=== PATIENT | female | born 1950 | race Caucasian/White ===

== ENCOUNTER → 2017-02-02 | Outpatient (CLI) | payer MEDICARE ==
--- NOTE | 2017-02-02 15:16 | XR ---
EXAMINATION TYPE: XR tibia fibula LT DATE OF EXAM: 02/02/2017 COMPARISON: NONE HISTORY: Lower leg injury TECHNIQUE: 2 view tibia and fibula FINDINGS: No acute or subacute fractures are evident. Soft tissues appear normal. IMPRESSION: 1. Normal left tibia and fibula
== END ==
LOC: RADXRMAIN 14:20
PROVIDERS: ATTEND Family Medicine
DX: S89.92XA Unspecified injury of left lower leg, initial encounter (principal)

== ENCOUNTER 2017-10-08 12:45 | Emergency (ER) | payer MEDICARE ==
[2017-10-08] MEDS ORDERED: SODIUM CHLORIDE 0.9% 500 ML IV STA (14:09)
--- NOTE | 2017-10-08 14:12 | ED ---
General Adult HPI - General Chief complaint: Abdominal Pain Stated complaint: Abd pain Time Seen by Provider: 10/08/17 13:00 Source: patient, RN notes reviewed Mode of arrival: ambulatory Limitations: no limitations - History of Present Illness Initial comments: This is a [age] female presents emergency Department complaining of lower abdominal pain that radiates to her back. Patient states this began on Thursday night. Patient states she does have a history of diverticulosis but never had any diverticulitis. Patient thought it was probably a urinary tract infection because she thought she was having increased urination but no dysuria. Patient went to an urgent care facility with a did a urine and told her urine was fine. They sent her in to be evaluated for diverticulitis. Patient states she has been a little nauseated but no vomiting. Patient denies any diarrhea. Patient denies any recent fever or chills. Patient denies any difficulty breathing or chest pain. Patient denies any palpation. Patient denies any lightheadedness or dizziness. Patient denies any recent injury or trauma. - Related Data Home Medications Medication Instructions Recorded Confirmed Atenolol 25 mg PO BID 10/08/17 10/08/17 Brinzolamide [Azopt 1% Ophth Susp] 1 drop LEFT EYE BID 10/08/17 10/08/17 Esomeprazole Magnesium [NexIUM] 20 mg PO HS 10/08/17 10/08/17 Flecainide Acetate [Tambocor] 100 mg PO Q12HR 10/08/17 10/08/17 Levothyroxine Sodium [Synthroid] 88 mcg PO DAILY 10/08/17 10/08/17 Pravastatin Sodium [Pravachol] 40 mg PO DAILY 10/08/17 10/08/17 Warfarin Sodium [Coumadin] 2.5 mg PO SUTUTH 10/08/17 10/08/17 Warfarin Sodium [Coumadin] 3.75 mg PO MOWEFRSA 10/08/17 10/08/17 Previous Rx's Medication Instructions Recorded Hydrocodone/Acetaminophen [[place] 1 each PO Q4HR PRN #14 tab 10/08/17 5-325] Levofloxacin [Levaquin] 750 mg PO DAILY #10 tab 10/08/17 metroNIDAZOLE [Flagyl] 500 mg PO TID 10 Days tab 10/08/17 Allergies Allergy/AdvReac Type Severity Reaction Status Date / Time Penicillins AdvReac Abdominal Verified 10/08/17 13:27 Pain Review of Systems ROS Statement: Those systems with pertinent positive or pertinent negative responses have been documented in the HPI. ROS Other: All systems not noted in ROS Statement are negative. Past Medical History Past Medical History: Atrial Fibrillation, GERD/Reflux, Hyperlipidemia, Hypertension, Thyroid Disorder History of Any Multi-Drug Resistant Organisms: None Reported Past Surgical History: Cholecystectomy, Hysterectomy Additional Past Surgical History / Comment(s): pace maker, cataract removal Past Psychological History: No Psychological Hx Reported Smoking Status: Never smoker Past Alcohol Use History: None Reported Past Drug Use History: None Reported General Exam - General Exam Comments Initial Comments: GENERAL: Patient is well-developed and well-nourished. Patient is nontoxic and well- hydrated and is in mild distress. ENT: Neck is soft and supple. No significant lymphadenopathy is noted. Oropharynx is clear. Moist mucous membranes. Neck has full range of motion without eliciting any pain. EYES: The sclera were anicteric and conjunctiva were pink and moist. Extraocular movements were intact and pupils were equal round and reactive to light. Eyelids were unremarkable. PULMONARY: Unlabored respirations. Good breath sounds bilaterally. No audible rales rhonchi or wheezing was noted. CARDIOVASCULAR: There is a regular rate and rhythm without any murmurs gallops or rubs. ABDOMEN: Patient has some left lower quadrant point tenderness no rebound. No palpable organomegaly was noted. There is no palpable pulsatile mass. SKIN: Skin is clear with no lesions or rashes and otherwise unremarkable. NEUROLOGIC: Patient is alert and oriented x3. Cranial nerves II through XII are grossly intact. Motor and sensory are also intact. Normal speech, volume and content. Symmetrical smile. MUSCULOSKELETAL: Normal extremities with adequate strength and full range of motion. LYMPHATICS: No significant lymphadenopathy is noted PSYCHIATRIC: Normal psychiatric evaluation. Normal interpersonal interactions appears functionally intact in deals appropriately with others. No signs of depression. No signs of anxiety. Limitations: no limitations Course Vital Signs 10/08/17 13:03 Temperature 98.5 F Pulse Rate 52 L Respiratory 18 Rate Blood Pressure 106/55 O2 Sat by Pulse 99 Oximetry Medical Decision Making - Medical Decision Making Computed tomography scan shows diverticulitis. I started the patient on Levaquin and Flagyl. I discussed keeping the patient overnight patient did not want to stay she wanted to try oral antibiotics at home. - Lab Data Result diagrams: 10/08/17 13:56 10/08/17 13:56 Lab Results 10/08/17 10/08/17 10/08/17 Range/Units 13:56 13:56 13:56 WBC 9.7 (3.8-10.6) k/uL RBC 3.57 L (3.80-5.40) m/uL Hgb 11.0 L (11.4-16.0) gm/dL Hct 34.2 (34.0-46.0) % MCV 95.9 (80.0-100.0) fL MCH 30.9 (25.0-35.0) pg MCHC 32.3 (31.0-37.0) g/dL RDW 13.1 (11.5-15.5) % Plt Count 191 (150-450) k/uL Neutrophils % 86 % Lymphocytes % 8 % Monocytes % 5 % Eosinophils % 1 % Basophils % 0 % Neutrophils # 8.3 H (1.3-7.7) k/uL Lymphocytes # 0.8 L (1.0-4.8) k/uL Monocytes # 0.5 (0-1.0) k/uL Eosinophils # 0.1 (0-0.7) k/uL Basophils # 0.0 (0-0.2) k/uL Sodium 142 (137-145) mmol/L Potassium 4.2 (3.5-5.1) mmol/L Chloride 109 H (98-107) mmol/L Carbon Dioxide 24 (22-30) mmol/L Anion Gap 9 mmol/L BUN 27 H (7-17) mg/dL Creatinine 1.10 H (0.52-1.04) mg/dL Est GFR (CKD-EPI)AfAm 61 (>60 ml/min/1.73 sqM) Est GFR (CKD-EPI)NonAf 53 (>60 ml/min/1.73 sqM) Glucose 105 H (74-99) mg/dL Calcium 9.6 (8.4-10.2) mg/dL Total Bilirubin 0.5 (0.2-1.3) mg/dL AST 26 (14-36) U/L ALT 32 (9-52) U/L Alkaline Phosphatase 85 (38-126) U/L Total Protein 6.8 (6.3-8.2) g/dL Albumin 4.2 (3.5-5.0) g/dL Amylase 66 (30-110) U/L Lipase 68 (23-300) U/L Urine Color Yellow Urine Appearance Clear (Clear) Urine pH 5.0 (5.0-8.0) Ur Specific [place] 1.023 (1.001-1.035) Urine Protein Trace H (Negative) Urine Glucose (UA) Negative (Negative) Urine Ketones 1+ H (Negative) Urine Blood Negative (Negative) Urine Nitrite Negative (Negative) Urine Bilirubin Negative (Negative) Urine Urobilinogen <2.0 (<2.0) mg/dL Ur Leukocyte Esterase Negative (Negative) Disposition Clinical Impression: Diverticulitis Disposition: HOME SELF-CARE Condition: Good Instructions: Diverticulitis (ED) Prescriptions: Hydrocodone/Acetaminophen [[place] 5-325] 1 each PO Q4HR PRN #14 tab PRN Reason: Pain Levofloxacin [Levaquin] 750 mg PO DAILY #10 tab metroNIDAZOLE [Flagyl] 500 mg PO TID 10 Days tab Is patient prescribed a controlled substance at d/c from ED?: Yes When asked, does pt state using other controlled substances?: No If prescribed controlled substance>3 days was MAPS reviewed?: Prescribed <3 Days If opioid is for acute pain is fill amount 7 days or less?: Yes If Rx opioid, was Start Talking consent form obtained?: Yes Referrals: Enrique Blank MD [Primary Care Provider] - 1-2 days Time of Disposition: 16:22
[2017-10-08 14:26] LABS: Appearance,Urine Clear (Clear); Bilirubin,Urine Negative (Negative); Blood,Urine Negative (Negative); Color,Urine Yellow; Glucose,Urine (UA) Negative (Negative); Ketones,Urine 1+ (Negative); Leukocyte Esterase,Urine Negative (Negative); Nitrite,Urine Negative (Negative); Protein,Urine Trace (Negative); Specific Gravity,Urine 1.023 (1.001-1.035); Urobilinogen,Urine <2.0 mg/dL (<2.0)
[2017-10-08 14:30] LABS: Basophils % (A) 0 %; Eosinophils # (A) 0.1 k/uL (0-0.7); Eosinophils % (A) 1 %; HCT 34.2 % (34.0-46.0); Lymphocytes # (A) 0.8 k/uL (1.0-4.8); Lymphocytes % (A) 8 %; MCH 30.9 pg (25.0-35.0); MCHC 32.3 g/dL (31.0-37.0); MCV 95.9 fL (80.0-100.0); Mean Platelet Volume 8.4; Monocytes # (A) 0.5 k/uL (0-1.0); Monocytes % (A) 5 %; Neutrophils # (A) 8.3 k/uL (1.3-7.7); Neutrophils % (A) 86 %; Platelet Count 191 k/uL (150-450); RBC 3.57 m/uL (3.80-5.40); RDW 13.1 % (11.5-15.5); WBC 9.7 k/uL (3.8-10.6)
[2017-10-08 14:40] LABS: Albumin 4.2 g/dL (3.5-5.0); Calcium 9.6 mg/dL (8.4-10.2); Potassium 4.2 mmol/L (3.5-5.1); Total Bilirubin 0.5 mg/dL (0.2-1.3); Total Protein 6.8 g/dL (6.3-8.2)
--- NOTE | 2017-10-08 15:44 | CT ---
EXAMINATION TYPE: CT abdomen pelvis w con DATE OF EXAM: 10/08/2017 COMPARISON: NONE HISTORY: 66-year-old female with low abdominal/pelvic pain TECHNIQUE: Contiguous axial scanning of the abdomen and pelvis following administration of 100 ml Iso wayne 300 IV contrast. Delayed images through the kidneys and coronal/sagittal reconstructions perform ed. CT DLP: 991.5 mGycm Automated exposure control for dose reduction was used. FINDINGS: Heart normal size without pericardial effusion. Right ventricular pacer lead. Lung bases clear witho ut pleural effusion. Small hiatal hernia. There is mild circumferential wall thickening of the distal esophagus. No focal liver lesion. Dilated bile duct enlarged measuring 1.7 cm. There is a diverticulum of the s econd portion of the duodenum projecting into the pancreatic head region. Cholecystectomy clips. Mild intrahepatic biliary ductal dilatation is also present. Portal venous system is patent Adrenal glands, kidneys, spleen, and pancreas show no gross abnormality. No dilated small bowel, free fluid, or free air. Mild to moderate stool. There is sigmoid diverticulo sis with wall thickening and moderate surrounding fat stranding and tracking edema at the mid sigmoid colon. Small amount of free fluid in the pelvis. No free air seen. Bladder not distended. Phleboliths. Uterus surgically absent. Neither ovary clearly seen. No pelvic l ymphadenopathy. Bones: Degenerated levoconvex scoliosis. Degenerative changes of both hips. IMPRESSION: 1. ACUTE DIVERTICULITIS ALONG THE MIDSIGMOID WITH MODERATE SURROUNDING INFLAMMATION. NO ABSCESS OR FR EE AIR. MILD PELVIC FREE FLUID LIKELY REACTIVE. FOLLOW-UP COLONOSCOPY AFTER SUCCESSFUL TREATMENT. 2. SMALL HIATAL HERNIA. THERE IS SOME CIRCUMFERENTIAL WALL THICKENING OF THE DISTAL ESOPHAGUS. QUERY ANY SYMPTOMS OF ESOPHAGITIS. DIRECT VISUALIZATION INDICATED. 3. MODERATE TO SEVERE DILATATION OF THE BILE DUCT AT 1.7 CM. THIS IS MORE THAN EXPECTED POSTCHOLECYST ECTOMY STATUS BUT MAY BE CHRONIC IN THIS PATIENT. CORRELATE WITH ALKALINE PHOSPHATASE AND BILIRUBIN L EVELS TO EXCLUDE BILIARY OBSTRUCTION.
[2017-10-08] MEDS ORDERED: LEVOFLOXACIN 750 MG TAB PO STA (16:05)
[2017-10-08] MEDS ORDERED: metroNIDAZOLE 500 MG TAB PO STA (16:06)
[2017-10-08 16:38] VITALS: BP 163/61; PULSE 55; RESP 16; TEMP 99
== END 2017-10-08 16:38 | disposition home or self-care (01) ==
LOC: EC 12:45
DX: K57.92 Diverticulitis of intestine, part unspecified, without perforation or abscess without bleeding (principal); I48.91 Unspecified atrial fibrillation; K21.9 Gastro-esophageal reflux disease without esophagitis; E78.5 Hyperlipidemia, unspecified; I10 Essential (primary) hypertension; E07.9 Disorder of thyroid, unspecified; Z87.19 Personal history of other diseases of the digestive system; Z90.49 Acquired absence of other specified parts of digestive tract; Z90.710 Acquired absence of both cervix and uterus; Z95.0 Presence of cardiac pacemaker; Z79.01 Long term (current) use of anticoagulants; Z79.899 Other long term (current) drug therapy; Z88.0 Allergy status to penicillin
CPT/HCPCS: 36415; 80053; 82150; 83690; 85025; 81003; 74177; 99284; 96360; Q9967

== ENCOUNTER → 2017-10-26 | Outpatient (CLI) | payer MEDICARE ==
--- NOTE | 2017-10-26 12:26 | XR ---
EXAMINATION TYPE: XR abdomen 1V DATE OF EXAM: 10/26/2017 COMPARISON: None INDICATION: Ileus TECHNIQUE: Single view abdomen supine FINDINGS: Nonspecific bowel gas is present with in small bowel loops as well as the colon. Scattered small amou nt of fecal debris is present. Suspicious air-fluid levels or differential air-fluid levels are not p resent. No obvious large free air is evident. Psoas margins are normal. No organomegaly is present. IMPRESSION: 1. Nonspecific abdomen
== END | disposition home or self-care (01) ==
LOC: RADXRMAIN 11:44
PROVIDERS: ATTEND Family Medicine
DX: K56.7 Ileus, unspecified (principal)
CPT/HCPCS: 74018

== ENCOUNTER 2017-11-10 09:52 | Day surgery (SDC) | payer MEDICARE ==
[~2017-11-10 09:52] MED LIST: LACTATED RINGERS 1,000 ML IV SCH; LIDOCAINE 1% 20 ML VIAL (10MG/ML) FOR IV START INTRADERMA PRN; MIDAZOLAM 2 MG/2 ML VIAL IV PRN
[2017-11-10 10:24] VITALS: RESP 16; TEMP 97.3
[2017-11-10] MEDS ORDERED: PROPOFOL 10 MG/ML 20 ML VIAL IV ONE (11:02)
[2017-11-10] MEDS ORDERED: GLYCOPYRROLATE 0.2 MG/ML 2 ML VIAL ONE (11:02)
[2017-11-10] MEDS ORDERED: LIDOCAINE 1% INJ 10MG/ML (20 ML MDV) ONE (11:02)
--- NOTE | 2017-11-10 11:09 | P.GSHP ---
History of Present Illness H&P Date: 11/10/17 Chief Complaint: Screening colonoscopy, GERD This is a 67-year-old female referred from Dr. Enrique Merino. Patient is today for EGD and colonoscopy. She's had issues with GERD. Her last colonoscopy was over 10 years ago. Past Medical History Past Medical History: Atrial Fibrillation, GERD/Reflux, Hyperlipidemia, Hypertension, Thyroid Disorder Additional Past Medical History / Comment(s): FACIAL NEUROFIBROMA History of Any Multi-Drug Resistant Organisms: None Reported Past Surgical History: Cholecystectomy, Hysterectomy, Orthopedic Surgery, Pacemaker Additional Past Surgical History / Comment(s): , cataract removal-NOT KEVIN WHICH EYE. LT BUNIONECTOMY. COLONOSCOPY, EGD Past Anesthesia/Blood Transfusion Reactions: No Reported Reaction Type of Cardiac Device: Permanent Pacemaker Device Placement Date:: 2010 Smoking Status: Never smoker - Past Family History Mother Family Medical History: Cancer Additional Family Medical History / Comment(s): LUNG, BRAIN Medications and Allergies Home Medications Medication Instructions Recorded Confirmed Type Atenolol 25 mg PO BID 10/08/17 11/10/17 History Brinzolamide [Azopt 1% Ophth Susp] 1 drop LEFT EYE BID 10/08/17 11/10/17 History Esomeprazole Magnesium [NexIUM] 20 mg PO HS 10/08/17 11/10/17 History Flecainide Acetate [Tambocor] 100 mg PO Q12HR 10/08/17 11/10/17 History Levothyroxine Sodium [Synthroid] 88 mcg PO DAILY 10/08/17 11/10/17 History Pravastatin Sodium [Pravachol] 40 mg PO DAILY 10/08/17 11/10/17 History Warfarin Sodium [Coumadin] 2.5 mg PO SUTUTH 10/08/17 11/10/17 History Warfarin Sodium [Coumadin] 3.75 mg PO MOWEFRSA 10/08/17 11/10/17 History Allergies Allergy/AdvReac Type Severity Reaction Status Date / Time Penicillins AdvReac Abdominal Verified 11/10/17 10:08 Pain Surgical - Exam Vital Signs Temp Pulse Resp BP Pulse Ox 97.3 F L 63 16 172/72 97 11/10/17 10:17 11/10/17 10:17 11/10/17 10:17 11/10/17 10:17 11/10/17 10:17 - General well developed, well nourished, no distress - Eyes PERRL - ENT normal pinna - Neck no masses - Respiratory normal expansion - Cardiovascular Rhythm: regular - Abdomen Abdomen: soft, non tender Assessment and Plan Assessment: GERD. We'll perform EGD. We'll perform screening colonoscopy.
--- NOTE | 2017-11-10 11:30 | P.OP ---
Date of Procedure: 11/10/17 Preoperative Diagnosis: GERD Screening colonoscopy Postoperative Diagnosis: Antral gastritis Hiatal hernia Esophagitis Procedure(s) Performed: EGD Colonoscopy Anesthesia: MAC Surgeon: Richard Damian Pathology: other (Antrum, esophagus) Condition: stable Description of Procedure: The patient's placed on the endoscopy table in the lateral position. She received IV sedation. The gastroscope placed oropharynx passed in the esophagus into stomach. Scope was then placed through the pylorus. The first and second portion of the duodenum appeared normal. The scope was then brought back and the antrum this appeared mildly inflamed. A biopsy was performed. Scope was then retroflexed and the remainder of the stomach appeared normal. There was a moderate size hiatal hernia. The GE junction was at 36 cm. The distal esophagus appeared mildly inflamed a biopsies performed. The proximal esophagus appeared normal. Scope was withdrawn for patient. Next digital rectal exam was performed. There were no significant abnormalities. The colonoscope was then placed patient anus passed throughout the entire colon. The ileocecal valve was visualized. The cecum, ascending and transverse colon appeared normal. In the descending and sigmoid colon there is mild diverticular changes. Scope summer back the rectum and this appeared normal. Scope was withdrawn for patient.
[2017-11-10 11:35] VITALS: PULSE 50
[2017-11-10 11:53] VITALS: BP 128/67
== END 2017-11-10 12:30 | disposition home or self-care (01) ==
LOC: ORWHC2ENDO 09:52
PROVIDERS: ATTEND Surgery
DX: K44.9 Diaphragmatic hernia without obstruction or gangrene (principal); K57.30 Diverticulosis of large intestine without perforation or abscess without bleeding; K29.50 Unspecified chronic gastritis without bleeding; K21.0 Gastro-esophageal reflux disease with esophagitis; I10 Essential (primary) hypertension; I48.91 Unspecified atrial fibrillation; Z79.01 Long term (current) use of anticoagulants; E07.9 Disorder of thyroid, unspecified; D33.3 Benign neoplasm of cranial nerves; Z95.0 Presence of cardiac pacemaker; Z79.890 Hormone replacement therapy; Z79.899 Other long term (current) drug therapy; Z88.0 Allergy status to penicillin
CPT/HCPCS: 88305; 43239; J2001; J2704; G0121

== ENCOUNTER → 2017-11-23 | Outpatient (CLI) | payer MEDICARE ==
[2017-11-23 11:10] LABS: Albumin 4.3 g/dL (3.5-5.0); Calcium 9.7 mg/dL (8.4-10.2); Potassium 4.4 mmol/L (3.5-5.1); Total Bilirubin 0.4 mg/dL (0.2-1.3); Total Protein 7.1 g/dL (6.3-8.2)
== END | disposition home or self-care (01) ==
LOC: LABWHC1 10:13
PROVIDERS: ATTEND Internal Medicine Interventional Cardiology
DX: E78.2 Mixed hyperlipidemia (principal)
CPT/HCPCS: 36415; 80053; 80061

== ENCOUNTER → 2017-12-29 | Outpatient (CLI) | payer MEDICARE ==
--- NOTE | 2017-12-29 14:48 | XR ---
Left hip HISTORY: Left hip pain 2 views of the left hip Correlation to prior exam 02/20/2016 No interval change. Minimal marginal spurring is noted. Joint spaces, alignment are maintained. Bone mineralization is stable, subchondral sclerosis noted. Anterior femoral head neck junction osseous ex crescence also noted. No fracture or dislocation. Vascular calcifications noted incidentally. Geode p resent within the femoral head. IMPRESSION: Mild osteoarthritis.
== END ==
LOC: RADXRMAIN 11:50
PROVIDERS: ATTEND Family Medicine
DX: M16.12 Unilateral primary osteoarthritis, left hip (principal)
CPT/HCPCS: 73502

== ENCOUNTER → 2018-12-21 | Outpatient (CLI) | payer MEDICARE ==
[2018-12-21 15:46] LABS: Chol/HDL Ratio 3.2; LDL Cholesterol,Calculated 81.2 mg/dL (0.0-131.0); VLDL Calculation 30.8 mg/dL (5.00-40.00)
== END ==
LOC: LABWHC1 10:03
PROVIDERS: ATTEND Nurse Practitioner Adult Health
DX: E78.2 Mixed hyperlipidemia (principal)
CPT/HCPCS: 36415; 80061; 84450; 84460

== ENCOUNTER → 2020-09-11 | Outpatient (CLI) | payer MEDICARE | END | disposition home or self-care (01) | DX: M79.661 Pain in right lower leg (principal) ==

== ENCOUNTER → 2021-01-02 | Outpatient (CLI) | payer MEDICARE ==
--- NOTE | 2021-01-03 13:53 | MM ---
Reason for exam: screening (asymptomatic). Last mammogram was performed 2 years and 5 months ago. History: Patient is postmenopausal and is nulliparous. Family history of breast cancer in maternal aunt. Physical Findings: A clinical breast exam by your physician is recommended on an annual basis and results should be correlated with mammographic findings. MG 3D Screening Mammo W/Cad Bilateral CC and MLO view(s) were taken. Prior study comparison: August 03, 2018, mammogram. November 24, 2016, mammogram. The breast tissue is heterogeneously dense. This may lower the sensitivity of mammography. There are benign appearing round calcifications bilaterally. There is no discrete abnormality. Left axillary pacemaker. ASSESSMENT: Benign, BI-RAD 2 RECOMMENDATION: Routine screening mammogram of both breasts in 1 year.
== END | disposition home or self-care (01) ==
LOC: RADMAMWWP 16:03
PROVIDERS: ATTEND Family Medicine
DX: Z12.31 Encounter for screening mammogram for malignant neoplasm of breast (principal); Z80.3 Family history of malignant neoplasm of breast; Z78.0 Asymptomatic menopausal state
CPT/HCPCS: 77063; 77067

== ENCOUNTER → 2021-01-14 | Outpatient (CLI) | payer MEDICARE ==
--- NOTE | 2021-01-14 09:41 | USB ---
Reason for exam: clinical finding. History: Patient is postmenopausal and is nulliparous. Family history of breast cancer in maternal aunt. Physical Findings: Nurse Summary: bilateral breast tenderness on exam, more so on left outer aspect, left breast all soft, movable (nurse ts). US Breast BILAT Left complete breast ultrasound includes all four quadrants, the retroareolar region and axilla. Finding demonstrates three lymph nodes at 1 o'clock measuring 1.9 x 2.0 x 1.5cm, 2.0 x 2.0 x 1.3cm and 1.8 x 1.4 x 1.4cm. These results were verbally communicated with the patient and result sheet given to the patient on 01/14/21. ASSESSMENT: Probably benign, BI-RAD 3 RECOMMENDATION: Ultrasound of the left breast in 6 months. Manage patient on a clinical basis.
== END | disposition home or self-care (01) ==
LOC: RADUSWWP 08:21
PROVIDERS: ATTEND Family Medicine
DX: N64.4 Mastodynia (principal); Z78.0 Asymptomatic menopausal state; Z80.3 Family history of malignant neoplasm of breast

== ENCOUNTER → 2021-07-19 | Outpatient (CLI) | payer MEDICARE ==
--- NOTE | 2021-07-19 14:53 | USB ---
Reason for exam: follow-up at short interval from prior study. History: Patient is postmenopausal and is nulliparous. Family history of breast cancer in maternal aunt. Physical Findings: A clinical breast exam by your physician is recommended on an annual basis and results should be correlated with mammographic findings. US Breast Limited LT Left limited breast ultrasound including focal area of concern, retroareolar and axilla demonstrates several normal appearing lymph nodes at the axillary tail measuring 0.7cm, 0.8cm, 0.9cm and 0.8cm. Scanned 1-2 o'clock, axilla tail and axilla. Results were given to the patient verbally at the time of the exam. ASSESSMENT: Benign, BI-RAD 2 RECOMMENDATION: Return to routine screening mammogram schedule for both breasts. Back on schedule.
--- NOTE | 2021-07-23 16:58 | BD ---
EXAMINATION TYPE: Axial Bone Density DATE OF EXAM: 07/19/2021 CLINICAL HISTORY: 70 years year old Female. ICD-10 CODE: Z78.0 Post menopausal w/o HRT Height: 57 Weight: 171.3 FRAX RISK QUESTIONS: Alcohol (3 or more units per day): NO Family History (Parent hip fracture): NO Glucocorticoids (More than 3mos): NO and hydrocortisone). History of Fracture in Adulthood: NO Secondary Osteoporosis: 1. Type 1 Diabetes: NO 2. Hyperthyroidism: NO 3. Menopause before 45: NO 4. Malnutrition: NO 5. Chronic liver disease: NO Rheumatoid Arthritis: NO Current Tobacco Use: NO RISK FACTORS HISTORY OF: Hip Fracture (Right/Left): NO Spine Fracture: NO History of Wrist Fracture: NO Surgery to Spine/Hip(right/left)/Wrist (right/left): NO Family History of Osteoporosis: NO Active: YES Diet low in dairy products/other sources of calcium: YES Postmenopausal woman: YES Take estrogen and/or progesterone medications: NO Lost more than 2 inches in height since high school: YES Frequent falls: NO Poor Health: NO Hyperparathyroidism: NO Adrenal Insufficiency: NO MEDICATIONS: Prednisone or other steroids: NO Thyroid Medications: LEVOTHYROXINE How Lon YEARS Osteoporosis Medications: NO Additional Medications: PRAVASTATIN, NEXIUM, ATENOLOL, LEXAPRO, Additional History: EXAM MEASUREMENTS: Bone mineral densitometry was performed using the [employer]. Bone mineral density as measured about the Lumbar spine is: ----- L1-L4(G/cm2): 1.244 T Score Values are as follows: ----- L1: 1.6 ----- L2: 0.5 ----- L3: -0.7 ----- L4: 1.1 ----- L1-L4: 0.5 Bone mineral density has: DECREASED 6.7% since study of: 12/21/2002 Bone mineral density about the R hip (g/cm2): 0.878 Bone mineral density about the L hip (g/cm2): 0.805 T Score values are as follows: -----R Neck: -1.1 -----L Neck: -1.7 -----R Total: -1.3 -----L Total: -1.9 Bone mineral density has: DECREASED 21.1% since study of: 12/21/2002 FRAX%s: The graph provided illustrates a 9.6% chance for a major osteoporotic fx and a 1.5% chance fo r the hips probability for fx in 10 years time. IMPRESSION: Osteopenia (T Score between -2.5 and -1). There is slightly increased risk of fracture and the patient may be considered for treatment. Re-Screen 2-5 years. NOTE: T-SCORE=SD OF THE YOUNG ADULT MEAN.
== END | disposition home or self-care (01) ==
LOC: RADBDWWP 13:13
PROVIDERS: ATTEND Family Medicine
DX: M85.89 Other specified disorders of bone density and structure, multiple sites (principal); Z78.0 Asymptomatic menopausal state; N64.4 Mastodynia; Z80.3 Family history of malignant neoplasm of breast
CPT/HCPCS: 77080

== ENCOUNTER → 2022-01-03 | Outpatient (CLI) | payer MEDICARE ==
--- NOTE | 2022-01-06 20:49 | MM ---
Reason for Exam: Screening (asymptomatic). Last screening mammogram was performed 12 month(s) ago. Patient History: Menarche at age 12. Patient has no children. Left ovary removed at age 58. Right ovary removed at age 58. Hysterectomy at age 58. Postmenopausal. Maternal aunt had breast cancer. Risk Values: Bita 5 year model risk: 1.9%. NCI Lifetime model risk: 5.4%. Prior Study Comparison: 11/24/2016 Screening Mammogram, Unknown. 08/03/2018 Screening Mammogram, Unknown. 01/02/2021 Bilateral Screening Mammogram, [facility]. Tissue Density: The breast tissue is heterogeneously dense. This may lower the sensitivity of mammography. Findings: Analyzed By CAD. There is no suspicious group of microcalcifications or new suspicious mass in either breast. Overall Assessment: Benign, BI-RAD 2 Management: Screening Mammogram of both breasts in 1 year. 1. Patient should continue monthly self breast exams. 2. A clinical breast exam by your physician is recommended on an annual basis. 3. This exam should not preclude additional follow-up of suspicious palpable abnormalities. Electronically signed and approved by: Risa Hicks M.D. Radiologist
== END | disposition home or self-care (01) ==
LOC: RADMAMWWP 14:26
PROVIDERS: ATTEND Family Medicine
DX: Z12.31 Encounter for screening mammogram for malignant neoplasm of breast (principal); Z80.3 Family history of malignant neoplasm of breast; Z78.0 Asymptomatic menopausal state
CPT/HCPCS: 77063; 77067

== ENCOUNTER 2022-06-13 12:11 | Day surgery (SDC) | payer MEDICARE ==
[~2022-06-13 12:11] MED LIST changes: -LIDOCAINE 1% 20 ML VIAL (10MG/ML) FOR IV START INTRADERMA PRN; -MIDAZOLAM 2 MG/2 ML VIAL IV PRN
[2022-06-13 12:47] VITALS: TEMP 97.6
[2022-06-13] MEDS ORDERED: PROPOFOL 10 MG/ML 20 ML VIAL IV ONE (13:30)
--- NOTE | 2022-06-13 13:42 | P.PCN ---
Date of Procedure: 06/13/22 Procedure(s) Performed: BRIEF HISTORY: Patient is a 71-year-old, pleasant, white female with long- standing history of GERD is presently maintained on Nexium 20 mg twice daily. Lately she is been having worsening epigastric discomfort with the patient possible basis.. PROCEDURE PERFORMED: Esophagogastroduodenoscopy with biopsy. PREOPERATIVE DIAGNOSIS: Long-standing history of GERD. IV sedation per anesthesia. PROCEDURE: After informed consent was obtained, the patient was brought into the endoscopy unit. IV sedation was administered by Anesthesia under continuous monitoring. Initially the Olympus GIF-140 video endoscope was inserted into the mouth. Esophagus intubated without any difficulty. It was gradually advanced into the stomach and duodenum and carefully examined. The bulb and the second part of the duodenum appeared normal. The scope at this time was withdrawn to the stomach, adequately insufflated with air, and upon careful examination, mucosa of the antrum had mild diffuse gastritis and biopsies were done from this area. The cause of the, body, cardia and the fundus appeared normal. The scope was then withdrawn into the esophagus. Moderate size hiatal hernia noted. The GE junction was located at 31 cm from the incisors. It was a long segment of West's esophagus extending from 26-31 cm from the incisors and multiple biopsies were done from this area. The rest of the esophagus appeared normal. There were no erosions or ulcerations seen and the patient tolerated the procedure well. IMPRESSION: 1. Moderate size hiatal hernia. 2. 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 Mild antral gastritis. RECOMMENDATIONS: The findings of this examination were discussed with the patient as well as a family. She was advised to follow with the biopsy results. She will continue with Nexium 20 mg twice daily and follow strict diet modification and antireflux measures..
[2022-06-13 13:50] VITALS: PULSE 60
[2022-06-13 14:19] VITALS: BP 132/68; RESP 18
== END 2022-06-13 14:39 | disposition home or self-care (01) ==
LOC: ORWHC2ENDO 12:11
PROVIDERS: ATTEND Internal Medicine Gastroenterology
DX: K29.50 Unspecified chronic gastritis without bleeding (principal); K44.9 Diaphragmatic hernia without obstruction or gangrene; K22.70 Barrett's esophagus without dysplasia; K21.00 Gastro-esophageal reflux disease with esophagitis, without bleeding; I10 Essential (primary) hypertension; E78.5 Hyperlipidemia, unspecified; I48.91 Unspecified atrial fibrillation; G47.33 Obstructive sleep apnea (adult) (pediatric); E07.9 Disorder of thyroid, unspecified; Z79.890 Hormone replacement therapy; Z79.899 Other long term (current) drug therapy; Z88.0 Allergy status to penicillin; Z88.1 Allergy status to other antibiotic agents; Z88.8 Allergy status to other drugs, medicaments and biological substances
CPT/HCPCS: 88305; 43239; J2704